=== PATIENT | male | born 1945 | race Caucasian/White ===

== ENCOUNTER 2018-03-22 16:24 | Inpatient (IN) | payer MEDICARE, OTHER ==
[2018-03-22 17:09] LABS: ADD MAN DIFF? NO
[2018-03-22 17:15] LABS: BASOPHIL # 0.1 10^3/ul (0.0-0.1); BASOPHILS % 0.4 % (0.0-2.0); HEMATOCRIT 36.1 % (42.0-52.0); HEMOGLOBIN 11.1 g/dl (14.0-18.0); LYMPHOCYTES # 0.8 10^3/ul (0.8-2.9); LYMPHOCYTES % 4.8 % (15.0-51.0); MEAN CORPUSCULAR HEMOGLOBIN 27.3 pg (29.0-33.0); MEAN CORPUSCULAR HGB CONC 30.7 g/dl (32.0-37.0); MEAN CORPUSCULAR VOLUME 88.9 fl (82.0-101.0); MEAN PLATELET VOLUME 10.2 fl (7.4-10.4); MONOCYTE # 1.1 10^3/ul (0.3-0.9); MONOCYTES % 6.9 % (0.0-11.0); NEUTROPHIL # 14.2 10^3/ul (1.6-7.5); NEUTROPHILS % 87.5 % (39.0-77.0); PLATELET COUNT 350 10^3/UL (140-415); RED BLOOD COUNT 4.06 10^6/ul (4.70-6.10)
[2018-03-22 17:15] LABS: WHITE BLOOD COUNT 16.2 10^3/ul (4.8-10.8)
[2018-03-22] MEDS: ONDANSETRON 4 MG INJ IV (17:15)
[2018-03-22] MEDS: CEFEPIME 2GM/50 ML (PMX) 50 ML IVPB (17:15)
[2018-03-22 17:37] LABS: INR 1.09; PROTIME 14.2 Sec (11.9-14.9); PT RATIO 1.1
[2018-03-22 17:38] LABS: ALANINE AMINOTRANSFERASE 24 IU/L (13-69); ALBUMIN 4.1 g/dl (3.3-4.9); ALBUMIN/GLOBULIN RATIO 1.02; ALKALINE PHOSPHATASE 73 IU/L (42-121); ANION GAP 17 (8-16); ASPARTATE AMINO TRANSFERASE 53 IU/L (15-46); BILIRUBIN,INDIRECT 0.4 mg/dl (0-1.1); BILIRUBIN,TOTAL 0.4 mg/dl (0.2-1.3); BLOOD UREA NITROGEN 46 mg/dl (7-20); CALCIUM 10.2 mg/dl (8.4-10.2); CARBON DIOXIDE 27 mmol/L (21-31); CHLORIDE 103 mmol/L (97-110); CREATININE 1.92 mg/dl (0.61-1.24); GLUCOSE 158 mg/dl (70-220); PARTIAL THROMBOPLASTIN TIME 30.1 Sec (25.0-35.0); SODIUM 142 mmol/L (135-144); TOTAL PROTEIN 8.1 g/dl (6.1-8.1)
[2018-03-22 17:49] LABS: TROPONIN-I 0.093 ng/ml (0.000-0.120)
[2018-03-22] MEDS: ACETAMINOPHEN 325 MG TAB PO (18:21)
[2018-03-22] MEDS: SODIUM CHLORIDE 0.9% 1L BAG IV* (18:23)
[2018-03-22] MEDS ORDERED: ALBUTEROL/IPRATROPIUM (NEB) 3 ML AMP HHN (19:00)
[2018-03-22] MEDS ORDERED: LORAZEPAM 2 MG INJ IV (19:00)
[2018-03-22] MEDS ORDERED: NACL 0.9% 3 ML SYG IV (19:00)
[2018-03-22] MEDS ORDERED: ONDANSETRON 4 MG INJ IV (19:00)
[2018-03-22] MEDS ORDERED: DOCUSATE SODIUM 100 MG CAP PO (19:00)
[2018-03-22] MEDS ORDERED: morphine 2 MG INJ IV (19:00)
[2018-03-22] MEDS ORDERED: ACETAMINOPHEN 325 MG TAB PO (19:00)
[2018-03-22] MEDS ORDERED: NA PHOSPHATE/BIPHOS 133 ML ENEMA PR (19:00)
[2018-03-22] MEDS ORDERED: NITROGLYCERIN (SL) 0.4 MG TAB SL (19:00)
[2018-03-22] MEDS ORDERED: MAGNESIUM HYDROXIDE 30ML CUP PO (19:00)
[2018-03-22] MEDS ORDERED: HYDROCODONE/APAP (5/325) TAB PO (19:00)
[2018-03-22 19:27] LABS: ADD UMIC YES; UR ASCORBIC ACID 40 mg/dL (NEGATIVE); UR BACTERIA FEW /HPF (NONE SEEN); UR BILIRUBIN (Dip) NEGATIVE (NEGATIVE); UR BLOOD (Dip) 2+ mg/dL (NEGATIVE); UR CLARITY SLIGHTLY CLOUDY (CLEAR); UR COLOR YELLOW (YELLOW); UR GLUCOSE (Dip) NEGATIVE (NEGATIVE); UR KETONES (Dip) NEGATIVE (NEGATIVE); UR LEUKOCYTE ESTERASE (Dip) NEGATIVE Leu/ul (NEGATIVE); UR MUCUS FEW /HPF (NONE SEEN); UR NITRITE (Dip) NEGATIVE (NEGATIVE); UR RBC 15 /HPF (0-5); UR SPECIFIC GRAVITY (Dip) 1.018 (1.003-1.030); UR TOTAL PROTEIN (Dip) 2+ mg/dl (NEGATIVE); UR UROBILINOGEN (Dip) NEGATIVE (NEGATIVE); UR WBC 3 /HPF (0-5)
[2018-03-22 20:43] LABS: LACTIC ACID 2.4 mmol/L (0.5-2.0)
[2018-03-22] MEDS ORDERED: AZTREONAM 2 GM in SOD CHLORIDE 0.9% 100 ML IVPB (22:00)
[2018-03-22 23:10] LABS: SODIUM,URINE RANDOM 18 mmol/L (30-90)
[2018-03-22 23:14] LABS: CREATININE,URINE RANDOM 174.45 mg/dl (20-370); PROTEIN/CREAT RATIO 0.31 RATIO
[2018-03-23] MEDS: AZTREONAM 1 GM/NS (PMX) 50 ML IVPB (00:03)
[2018-03-23] MEDS: SOD CHLORIDE 0.9% 1,000 ML IV ×4 (00:03→19:07)
[2018-03-23 00:06] LABS: LACTIC ACID 3.5 mmol/L (0.5-2.0)
[2018-03-23] MEDS: HEPARIN 5,000 UNIT/0.5 ML VIAL SC ×3 (00:10→21:03)
[2018-03-23] MEDS: PANTOPRAZOLE 40 MG INJ IV (05:49)
[2018-03-23 06:49] LABS: ADD MAN DIFF? NO
[2018-03-23 06:52] LABS: WHITE BLOOD COUNT 12.9 10^3/ul (4.8-10.8)
[2018-03-23 06:52] LABS: BASOPHIL # 0.1 10^3/ul (0.0-0.1); BASOPHILS % 0.5 % (0.0-2.0); EOSINOPHILS % 0.2 % (0.0-7.0); HEMATOCRIT 32.1 % (42.0-52.0); HEMOGLOBIN 9.5 g/dl (14.0-18.0); LYMPHOCYTES # 1.6 10^3/ul (0.8-2.9); LYMPHOCYTES % 12.1 % (15.0-51.0); MEAN CORPUSCULAR HEMOGLOBIN 27.5 pg (29.0-33.0); MEAN CORPUSCULAR HGB CONC 29.6 g/dl (32.0-37.0); MEAN CORPUSCULAR VOLUME 92.8 fl (82.0-101.0); MEAN PLATELET VOLUME 10.5 fl (7.4-10.4); MONOCYTE # 0.9 10^3/ul (0.3-0.9); NEUTROPHIL # 10.3 10^3/ul (1.6-7.5); NEUTROPHILS % 79.7 % (39.0-77.0); PLATELET COUNT 292 10^3/UL (140-415); RED BLOOD COUNT 3.46 10^6/ul (4.70-6.10); RED CELL DISTRIBUTION WIDTH 17.8 % (11.5-14.5)
[2018-03-23 07:12] LABS: URIC ACID 6.8 mg/dl (3.1-7.9)
[2018-03-23 07:17] LABS: ANION GAP 14 (8-16); BLOOD UREA NITROGEN 36 mg/dl (7-20); CARBON DIOXIDE 28 mmol/L (21-31); CHLORIDE 108 mmol/L (97-110); CREATININE 1.25 mg/dl (0.61-1.24); GLUCOSE 98 mg/dl (70-220); MAGNESIUM 2.1 mg/dl (1.7-2.5); PHOSPHORUS 3.9 mg/dl (2.5-4.9); POTASSIUM 4.7 mmol/L (3.5-5.1); SODIUM 145 mmol/L (135-144)
[2018-03-23 07:19] LABS: CREATINE KINASE 2431 IU/L (23-200)
[2018-03-23 07:24] LABS: LACTIC ACID 3.5 mmol/L (0.5-2.0)
[2018-03-23 07:46] LABS: CHOLESTEROL 114 mg/dl (100-200)
[2018-03-23 07:46] LABS: HDL CHOLESTEROL 28 mg/dl (31-75); LDL CHOLESTEROL,CALCULATED 68 mg/dl; TRIGLYCERIDES 91 mg/dl (0-149)
[2018-03-23 08:17] LABS: THYROID STIMULATING HORMONE 0.918 MIU/L (0.465-4.680)
[2018-03-23] MEDS: AZTREONAM 0.5 GM in SOD CHLORIDE 0.9% 50 ML IV ×2 (09:24→21:01)
[2018-03-23 12:56] LABS: LACTIC ACID 3.2 mmol/L (0.5-2.0)
[2018-03-23 19:25] LABS: LACTIC ACID 1.2 mmol/L (0.5-2.0)
[2018-03-24 00:43] LABS: LACTIC ACID 1.4 mmol/L (0.5-2.0)
[2018-03-24 05:32] LABS: ADD MAN DIFF? NO
[2018-03-24 05:33] LABS: WHITE BLOOD COUNT 14.3 10^3/ul (4.8-10.8)
[2018-03-24 05:33] LABS: BASOPHILS % 0.3 % (0.0-2.0); EOSINOPHILS % 0.1 % (0.0-7.0); HEMATOCRIT 29.4 % (42.0-52.0); HEMOGLOBIN 8.8 g/dl (14.0-18.0); LYMPHOCYTES # 1.1 10^3/ul (0.8-2.9); LYMPHOCYTES % 7.4 % (15.0-51.0); MEAN CORPUSCULAR HEMOGLOBIN 27.5 pg (29.0-33.0); MEAN CORPUSCULAR HGB CONC 29.9 g/dl (32.0-37.0); MEAN CORPUSCULAR VOLUME 91.9 fl (82.0-101.0); MEAN PLATELET VOLUME 10.5 fl (7.4-10.4); MONOCYTE # 0.8 10^3/ul (0.3-0.9); MONOCYTES % 5.3 % (0.0-11.0); NEUTROPHIL # 12.3 10^3/ul (1.6-7.5); NEUTROPHILS % 86.4 % (39.0-77.0); PLATELET COUNT 270 10^3/UL (140-415); RED CELL DISTRIBUTION WIDTH 17.7 % (11.5-14.5)
[2018-03-24] MEDS: PANTOPRAZOLE 40 MG INJ IV (05:46)
[2018-03-24] MEDS: SOD CHLORIDE 0.9% 1,000 ML IV (05:47)
[2018-03-24 06:23] LABS: ANION GAP 10 (8-16); BLOOD UREA NITROGEN 33 mg/dl (7-20); CALCIUM 8.9 mg/dl (8.4-10.2); CARBON DIOXIDE 29 mmol/L (21-31); CHLORIDE 109 mmol/L (97-110); CREATININE 1.64 mg/dl (0.61-1.24); GLUCOSE 126 mg/dl (70-220); POTASSIUM 4.5 mmol/L (3.5-5.1); SODIUM 143 mmol/L (135-144)
[2018-03-24] MEDS: AZTREONAM 0.5 GM in SOD CHLORIDE 0.9% 50 ML IV (09:54)
[2018-03-24] MEDS: HEPARIN 5,000 UNIT/0.5 ML VIAL SC (09:56)
[2018-03-24] MEDS: hydrALAzine 20 MG INJ IV (11:25)
[2018-03-24] MEDS: LEVOFLOXACIN 750 MG TABLET PO (13:34)
== END 2018-03-24 18:14 | disposition home health service (06) | DRG 871 ==
LOC: E/R 16:24 → PP2 18:41
DX: A41.9 Sepsis, unspecified organism (principal); N17.0 Acute kidney failure with tubular necrosis; G93.41 Metabolic encephalopathy; N39.0 Urinary tract infection, site not specified; I12.9 Hypertensive chronic kidney disease with stage 1 through stage 4 chronic kidney disease, or unspecified chronic kidney disease; N18.9 Chronic kidney disease, unspecified; R32 Unspecified urinary incontinence; G31.84 Mild cognitive impairment of uncertain or unknown etiology; R73.03 Prediabetes
CPT/HCPCS: 36415; 71045; 76775; 80048; 80053; 80061; 81001; 81003; 82550; 82570; 83036; 83605; 83735; 84100; 84300; 84439; 84443; 84484; 84560; 85025; 85610; 85730; 87040; 87086; 89190; 92610; 93005; 96365; 96375; 97162; 97165; 99291-25